=== PATIENT | female | born 1960 | race Two or more races ===

== ENCOUNTER → 2017-03-13 | Outpatient (CLI) | payer OTHER ==
[2014-05-27 10:15] VITALS: BP 149/94
[~2017-03-13] MED LIST: AMLO5TAB2 PO
--- NOTE | 2017-03-13 17:36 | KCIC ---
Bilateral digital screening mammograms: Reason for examination: Routine screening. Comparison is made to previous studies dated 01/12/2016 and 03/17/2013. The skin and nipples show no abnormalities. No abnormal lymph nodes are seen. The breast parenchyma is predominantly fatty. (Breast density: Category A.) There continues to be some patchy parenchymal asymmetry at the 2:00 B position of the left breast which has not changed. There are no new dominant masses, suspicious calcifications or architectural distortions. Impression: No evidence of malignancy. Recommend routine screening. BI-RADS Category 2: Benign. "Our facility is accredited by the [employer] Mammography [employer]." This patient's information has been entered into a reminder system for the patient to be notified with the results of her examination and a target date for the next mammogram. Electronically signed by: Sharon Yi MD (03/13/2017 5:33 PM) [facility]
== END | disposition home or self-care (01) ==
LOC: KCIC MAMMO 11:39
PROVIDERS: ATTEND Family Medicine
DX: Z12.31 Encounter for screening mammogram for malignant neoplasm of breast (principal)
CPT/HCPCS: G0202; 77067

== ENCOUNTER 2017-06-29 06:09 | Day surgery (SDC) | payer OTHER ==
[~2017-06-29] VITALS: Ht 162.6 cm; Wt 73.9 kg
[2017-06-29] MEDS ORDERED: IV RINGERS,LACTATED 1000ML 1,000 ML IV SCH (07:00)
[2017-06-29] MEDS ORDERED: LIDOCAINE 1% PF 2 ML VIAL. ID PRN (07:00)
[2017-06-29] MEDS ORDERED: MORPHINE SULFATE 2 MG/ML DISP.SYRIN. IV PRN (07:00)
[2017-06-29] MEDS ORDERED: HYDROmorphone 2 MG/ML VIAL IV PRN (07:00)
[2017-06-29] MEDS ORDERED: PROCHLORPERAZINE 10 MG/2 ML VIAL. IV PRN (07:00)
[2017-06-29] MEDS ORDERED: fentaNYL PF VIAL 100 MCG/2 ML VIAL IV PRN (07:00)
[2017-06-29] MEDS ORDERED: ONDANSETRON PF 4 MG/2 ML VIAL. IV PRN (07:00)
[2017-06-29] MEDS ORDERED: PROPOFOL 20 ML IV ONE ×2 (07:11)
[2017-06-29] MEDS ORDERED: 0.9 % SODIUM CHLORIDE 50 ML VIAL. IJ ONE (07:11)
[2017-06-29] MEDS ORDERED: LIDOCAINE 2% PF Vial for OR 5 ML VIAL. ONE ×3 (07:11)
[2017-06-29] MEDS ORDERED: MIDAZOLAM HCL/PF 2 MG/2 ML VIAL. ONE (07:16)
[2017-06-29] MEDS ORDERED: BUPIVACAINE 0.25% 50 ML VIAL. ONE (07:17)
[2017-06-29] MEDS ORDERED: KETAMINE HCL 500 MG/10 ML VIAL. ONE (07:19)
[2017-06-29] MEDS ORDERED: GLYCOPYRROLATE 1 MG/5 ML VIAL. ONE (07:24)
--- NOTE | 2017-06-29 08:49 | DISCH ---
DISCHARGE INSTRUCTIONS Condition on Discharge Condition on Discharge: Stable Activity After Discharge Activity Instructions for Disc: Other, see below Other activity instructions: avoid hard grasp or pressure on incision Weight Bearing Status after Di: Other, see below (May use hand for fine motor use eating keyboard etc.) Diet after Discharge Diet after Discharge: Regular Wound Incision Care Wound/Incision Care: Ice to area for comfort, Keep wound elevated, Do not change dressing Other wound/incision instructi: keep dressing clean and dry Contacting the [facility] after DC Call your doctor for: Concerns you may have Follow-Up Follow up with: Dr. Crouch 10 days YUDELKA CROUCH MD Jun 29, 2017 08:49
[2017-06-29] MEDS ORDERED: HYDR-971 PO (08:51)
--- NOTE | 2017-06-29 08:56 | PDOC4 ---
Operative Note Operative Note Date of surgery: 06/29/2017 Preoperative diagnosis: Left carpal tunnel syndrome Postoperative diagnosis: Same with moderate to severe median nerve compression Operative procedure: Left carpal tunnel release Surgeon: Willa Anesthesia: [place] block Estimated blood loss: 1 mL Complications: None Operative indications: Patient has had numbness and burning in both of her hands left worse than right probably for over a year it's been consistently worsening over the past several months it bothers her at night with activity and also in certain positions and sleeping. EMG confirmed carpal tunnel syndrome right much more severe than left and she is a left-hand dominant individual. We had discussed nonoperative treatments which have not been effective in eliminating any progression of her symptoms we also talked about carpal tunnel release and the possibility of infection nerve or blood vessel damage medical or other anesthetic complications among others including the fact that her symptoms may not go away completely despite taking the pressure off the nerve. All her questions were answered consent was obtained and she agrees to proceed with surgical evaluation and treatment Operative text: Patient was identified procedure verified patient placed in the supine position on the operating table. After a tourniquet was placed on the upper arm and her block was administered by anesthesia the left upper extremity was prepped and draped in standard sterile fashion. After timeout was performed patient procedure identified and verified a longitudinal incision was made just distal to the distal palmar crease dissection carried out down to the transverse carpal ligament which was divided longitudinally carpal tunnel contents were protected with a [place] elevator and were directly visualized. Transverse carpal ligament was divided proximally and distally and verified to rereleased completely both visually and palpably. Quarter percent plain Marcaine was used to supplement in the incision site area and closure accomplished with 4-0 nylon suture sterile dressings were applied fingers were noted be warm pink following deflation of tourniquet after total tourniquet time approximately 25 minutes she was returned recovery room in stable condition having tolerated procedure well YUDELKA JARVIS MD Jun 29, 2017 08:56
[2017-06-29] MEDS ORDERED: fentaNYL PF VIAL 100 MCG/2 ML VIAL ONE (09:14)
[2017-06-29] MEDS ORDERED: HYDROcodone/APAP 5/325MG 1 TAB TABLET PO ONE (09:15)
[2017-06-29] MEDS ORDERED: hydrALAZINE 20 MG/ML VIAL. ONE (10:00)
[2017-06-29] MEDS: fentaNYL PF VIAL 100 MCG/2 ML VIAL IV PRN ×2 (10:13→10:31)
[2017-06-29] MEDS ORDERED: hydrALAZINE 20 MG/ML VIAL. IVP ONE (10:15)
[2017-06-29 10:27] VITALS: BP 138/89
== END 2017-06-29 10:56 | disposition home or self-care (01) ==
LOC: SURG 06:09
PROVIDERS: ATTEND Orthopaedic Surgery
DX: G56.02 Carpal tunnel syndrome, left upper limb (principal); I10 Essential (primary) hypertension; J45.909 Unspecified asthma, uncomplicated; F32.9 Major depressive disorder, single episode, unspecified; F17.200 Nicotine dependence, unspecified, uncomplicated; Z98.890 Other specified postprocedural states; Z90.49 Acquired absence of other specified parts of digestive tract; Z87.39 Personal history of other diseases of the musculoskeletal system and connective tissue; Z72.89 Other problems related to lifestyle; Z88.8 Allergy status to other drugs, medicaments and biological substances
CPT/HCPCS: 64721; J0360; J0690; J2250; J2704; J3010; J3490; C1769; J2001

== ENCOUNTER 2017-12-29 10:19 | Emergency (ER) | payer OTHER ==
[2017-12-29] MEDS: HYDROcodone/APAP 5/325MG 1 TAB TABLET PO (11:32)
== END 2017-12-29 11:35 | disposition home or self-care (01) ==
LOC: ER 10:19
DX: M54.16 Radiculopathy, lumbar region (principal); I10 Essential (primary) hypertension; F20.9 Schizophrenia, unspecified; Z90.49 Acquired absence of other specified parts of digestive tract
CPT/HCPCS: 99283

== ENCOUNTER → 2018-01-11 | Day surgery (SDC) | payer OTHER ==
[~2018-01-11] MED LIST changes: -AMLO5TAB2 PO; +BUPIVACAINE-EPI 0.25%-1:200000 50 ML VIAL.; +FAMOTIDINE 20 MG/2 ML VIAL; +LIDOCAINE 1% PF 2 ML VIAL. ID; +LIDOCAINE 2% PF Vial for OR 5 ML VIAL.; +MIDAZOLAM HCL/PF 2 MG/2 ML VIAL.; +MORPHINE SULFATE 2 MG/ML DISP.SYRIN. IV; +ONDANSETRON PF 4 MG/2 ML VIAL.; +ONDANSETRON PF 4 MG/2 ML VIAL. IV; +PROCHLORPERAZINE 10 MG/2 ML VIAL. IV; +PROPOFOL 20 ML IV; +SEVOFLURANE 16 TO 30 MINUTES. IH; +ePHEDrine PF IN SALINE 50 MG/5 ML DISP.SYRIN IV; +fentaNYL PF VIAL 100 MCG/2 ML VIAL; +fentaNYL PF VIAL 100 MCG/2 ML VIAL IV
[2018-01-11] MEDS: IV RINGERS,LACTATED 1000ML 1,000 ML IV (07:45)
[2018-01-11] MEDS: HYDROcodone/APAP 5/325MG 1 TAB TABLET PO (09:46)
[2018-01-11] MEDS: BUPIVACAINE 0.25% 50 ML VIAL. (13:59)
== END | disposition home or self-care (01) ==
LOC: SURG 07:09
DX: G56.01 Carpal tunnel syndrome, right upper limb (principal); Z86.73 Personal history of transient ischemic attack (TIA), and cerebral infarction without residual deficits; I10 Essential (primary) hypertension; J45.909 Unspecified asthma, uncomplicated; Z90.49 Acquired absence of other specified parts of digestive tract; K21.9 Gastro-esophageal reflux disease without esophagitis; Z98.51 Tubal ligation status; Z98.890 Other specified postprocedural states; M19.90 Unspecified osteoarthritis, unspecified site; Z85.05 Personal history of malignant neoplasm of liver; F20.9 Schizophrenia, unspecified; F31.9 Bipolar disorder, unspecified; F41.9 Anxiety disorder, unspecified; Z72.89 Other problems related to lifestyle; Z83.3 Family history of diabetes mellitus; Z88.8 Allergy status to other drugs, medicaments and biological substances; F17.200 Nicotine dependence, unspecified, uncomplicated; Z79.899 Other long term (current) drug therapy
CPT/HCPCS: 64721; A7015; J0690; J2001; J2250; J2405; J2704; J3010; J3490; S0028

== ENCOUNTER 2018-03-15 13:45 | Emergency (ER) | payer OTHER ==
[~2018-03-15] VITALS: Ht 154.9 cm; Wt 75.7 kg
[~2018-03-15 13:45] MED LIST changes: +AMLO5TAB7 PO; -BUPIVACAINE-EPI 0.25%-1:200000 50 ML VIAL.; -FAMOTIDINE 20 MG/2 ML VIAL; +HYDR-971 PO; -LIDOCAINE 1% PF 2 ML VIAL. ID; -LIDOCAINE 2% PF Vial for OR 5 ML VIAL.; +LISI10TA2 PO; -MIDAZOLAM HCL/PF 2 MG/2 ML VIAL.; -MORPHINE SULFATE 2 MG/ML DISP.SYRIN. IV; -ONDANSETRON PF 4 MG/2 ML VIAL.; -ONDANSETRON PF 4 MG/2 ML VIAL. IV; +OXYB5TAB7 PO; +PRED50TA PO; -PROCHLORPERAZINE 10 MG/2 ML VIAL. IV; -PROPOFOL 20 ML IV; +PROVENTIL HFA6.7 GM IH; -SEVOFLURANE 16 TO 30 MINUTES. IH; -ePHEDrine PF IN SALINE 50 MG/5 ML DISP.SYRIN IV; -fentaNYL PF VIAL 100 MCG/2 ML VIAL; -fentaNYL PF VIAL 100 MCG/2 ML VIAL IV
[2018-03-15 13:59] VITALS: BP 113/60
[2018-03-15] MEDS ORDERED: KETOROLAC 60 MG/2 ML INJ. IM ONE (14:15)
[2018-03-15] MEDS ORDERED: ORPHENADRINE CITRATE 60 MG/2 ML VIAL. IM ONE (14:15)
[2018-03-15] MEDS ORDERED: NAPR-514 PO (14:20)
[2018-03-15] MEDS ORDERED: ORPH100T PO (14:20)
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
== END 2018-03-15 14:45 | disposition home or self-care (01) ==
LOC: ER 13:45
DX: M54.41 Lumbago with sciatica, right side (principal); J45.909 Unspecified asthma, uncomplicated; I10 Essential (primary) hypertension; F20.9 Schizophrenia, unspecified; Z90.89 Acquired absence of other organs; Z90.49 Acquired absence of other specified parts of digestive tract; Z98.890 Other specified postprocedural states; Z88.6 Allergy status to analgesic agent
CPT/HCPCS: 96372; 99284; J1885; J2360

== ENCOUNTER → 2018-12-17 | Outpatient (CLI) | payer OTHER ==
[~2018-12-17] MED LIST changes: +ALBU2.5V8 IH; +AMLO5TAB10 PO; -AMLO5TAB7 PO; +HYDR-2765 PO; +HYDR-3164 PO; -HYDR-971 PO; +NAPR-514 PO; +ONDA4TAB12 PO; +ORPH100T PO; -PROVENTIL HFA6.7 GM IH
--- NOTE | 2018-12-17 14:06 | KCIC ---
BILATERAL SCREENING MAMMOGRAM History: Routine screening. Comparison: Bilateral mammogram March 17, 2017 and dating back to 2010. Technique: Routine bilateral digital mammogram views were obtained. Findings: Breast Tissue Density A : The breasts are almost entirely fatty. Parenchymal asymmetry in the left breast 2:00 position at posterior depth is stable dating back to 2010. There are no dominant masses, suspicious microcalcifications, or architectural distortion. IMPRESSION: No mammographic evidence of malignancy. Recommend routine screening. BI-RADS category 2: Benign findings. The images were reviewed with computer aided detection. Patient information is entered into the reminder system with a target due date for the next screening mammogram. Mammography is the most sensitive method for finding small breast cancers, but it does not detect them all and is not a substitute for careful clinical examination. A negative mammogram does not negate a clinically suspicious finding and should not result in delay in biopsying a clinically suspicious abnormality. "Our facility is accredited by the [employer] Mammography Program." Electronically signed by: Deyvi Mcnair MD (12/17/2018 2:03 PM) [facility]
--- NOTE | 2018-12-17 17:39 | KCIC ---
Limited soft tissue ultrasound HISTORY: Neck mass. FINDINGS: Scanning performed in the area of palpable lump at the left jaw line demonstrates a couple of small nodules both of which demonstrate lymph node echotexture and morphology. These measure 9 x 3 x 3 mm, and 10 x 4 x 4 mm. Scanning in the area of the palpable lump on the right jaw line demonstrates no sonographic abnormality. IMPRESSION: 1. 2 small lymph nodes identified at the area of palpable left-sided lump. 2. No sonographic findings at the area of palpable right-sided lump. Electronically signed by: Adriel Lopez MD (12/17/2018 5:36 PM) [id number]
== END | disposition home or self-care (01) ==
LOC: KCIC US 10:32
PROVIDERS: ATTEND Family Medicine
DX: Z12.31 Encounter for screening mammogram for malignant neoplasm of breast (principal); R22.1 Localized swelling, mass and lump, neck
CPT/HCPCS: 76536; 77067

== ENCOUNTER 2018-12-19 21:40 | Emergency (ER) | payer OTHER ==
[~2018-12-19] VITALS: Ht 162.6 cm; Wt 79.8 kg
[~2018-12-19 21:40] MED LIST changes: -HYDR-2765 PO; -ONDA4TAB12 PO
[2018-12-19] MEDS ORDERED: NEOMY/BACITR/POLYMYXIN OINT PACKET. TP ONE (22:15)
[2018-12-19] MEDS ORDERED: fentaNYL PF VIAL 100 MCG/2 ML VIAL IV ONE (22:15)
[2018-12-19] MEDS ORDERED: DIPHTH,PERTUSS(ACELL),TET TOX 0.5 ML DISP.SYRIN. VAX IM ONE (22:15)
--- NOTE | 2018-12-19 22:36 | RAD ---
Left humerus radiographs History: Pain and swelling Comparison: None. Findings: 2 views left humerus are submitted. There is displaced, oblique, angulated fracture involving the proximal one third shaft of the humerus with some overriding of fracture fragments. There is angulation with apex directed posteriorly and laterally, degree of rotation at site of fracture. Left humeral head articulates normally with the glenoid. Impression: 1. There is angulated, displaced fracture of the proximal one third shaft of the left humerus. Electronically signed by: Edwar Mckeon MD (12/19/2018 10:33 PM) [facility]
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
[2018-12-19] MEDS ORDERED: MORPHINE SULFATE 4 MG/ML VIAL. IV ONE (23:15)
[2018-12-19] MEDS ORDERED: ONDANSETRON PF 4 MG/2 ML VIAL. IV ONE (23:30)
[2018-12-20] MEDS ORDERED: ONDA4TAB12 PO (00:44)
[2018-12-20] MEDS ORDERED: HYDR-2765 PO (00:44)
[2018-12-20 00:45] VITALS: BP 168/108
[2018-12-20] MEDS ORDERED: HYDROcodone/APAP 7.5/325MG 1 TAB TABLET PO ONE (01:00)
== END 2018-12-20 01:00 | disposition home or self-care (01) ==
LOC: ER 21:40
DX: S42.352A Displaced comminuted fracture of shaft of humerus, left arm, initial encounter for closed fracture (principal); S80.812A Abrasion, left lower leg, initial encounter; J45.909 Unspecified asthma, uncomplicated; I10 Essential (primary) hypertension; F20.9 Schizophrenia, unspecified; Z88.8 Allergy status to other drugs, medicaments and biological substances; W01.0XXA Fall on same level from slipping, tripping and stumbling without subsequent striking against object, initial encounter; Y93.89 Activity, other specified; Y92.89 Other specified places as the place of occurrence of the external cause; Y99.8 Other external cause status
CPT/HCPCS: 29105; 73060; 90471; 90715; 96374; 96375; 99284; J2270; J2405; J3010

== ENCOUNTER → 2019-09-03 | Outpatient (CLI) | payer OTHER ==
[~2019-09-03] MED LIST changes: -ALBU2.5V8 IH; +HYDR-2765 PO; +ONDA4TAB12 PO; +OXYB5TAB10 PO; -OXYB5TAB7 PO; +PROVENTIL HFA6.7 GM IH
--- NOTE | 2019-09-04 10:46 | RAD ---
PROCEDURE: HAND RIGHT 3V STUDY DATE: 09/03/2019 CLINICAL INDICATION / HISTORY: Right thumb pain. TECHNIQUE: PA, lateral and oblique views of the right hand. COMPARISON: Left hand x-rays of 01/06/2019 FINDINGS: No fracture or dislocation is identified. The bone density is normal. The joint spaces are maintained, and there are no erosions to suggest an inflammatory arthropathy. There are however osteophytic spurs at the base of the distal phalanx of the first and fifth digits in a pattern consistent with moderately advanced osteoarthritis. The soft tissues show calcifications along the radiocarpal joint, suggesting chondrocalcinosis of the proximal carpal row cartilage. IMPRESSION: Degenerative changes at the IP joints of the first and fifth digits. No fracture, aggressive osseous lesion or malalignment noted. Electronically signed by: Neno Major MD (09/04/2019 10:43 AM) [facility]
== END ==
LOC: RAD 11:45
PROVIDERS: ATTEND Psychiatry & Neurology Neurology
DX: M19.041 Primary osteoarthritis, right hand (principal); Z86.69 Personal history of other diseases of the nervous system and sense organs
CPT/HCPCS: 73130

== ENCOUNTER → 2020-12-20 | Outpatient (CLI) | payer OTHER ==
[~2020-12-20] MED LIST changes: +AMLO-186 PO; -AMLO5TAB10 PO; +LISI10TA16 PO; -LISI10TA2 PO
--- NOTE | 2020-12-20 15:50 | RAD ---
PROCEDURE: MG 2D BILAT SCREENING HISTORY: The patient is 60 years old and is seen for Reason: SCREENING MAMMOGRAM / Spl. Instructions: / History: . COMPARISON: December 17, 2018 and March 13, 2017. TECHNIQUE: CC and MLO views of both breasts were obtained. Images were processed by the [employer] computer-aided detection system. DENSITY: The breast tissue is predominantly fatty. FINDINGS: No developing mass, suspicious calcifications or architectural distortion. Unchanged par enchymal asymmetry left upper outer breast. IMPRESSION: Negative. No evidence of malignancy. Recommend annual screening mammograms per [employer] guidelines. She will be due in one year. BI-RADS category 1 Negative Patient entered into a reminder system for annual screening mammogram. Electronically signed by: Aiden Vela DO (12/20/2020 3:48 PM) [id number]
== END ==
LOC: MAMMO 14:10
PROVIDERS: ATTEND Obstetrics & Gynecology
DX: Z12.31 Encounter for screening mammogram for malignant neoplasm of breast (principal)
CPT/HCPCS: 77067

== ENCOUNTER → 2021-02-07 | Outpatient (CLI) | payer OTHER ==
--- NOTE | 2021-02-07 13:24 | KCIC ---
EXAM: Pelvis and left hip, 2 views. HISTORY: Pain. COMPARISON: None. FINDINGS: A frontal view of the pelvis and frog-leg view of the left hip are obtained. There is no fr acture, dislocation or subluxation. There is mild lateral marginal acetabular and femoral head spurri ng with subchondral sclerosis and subchondral cyst formation. There is degenerative change of the vis ualized lower lumbar levels. IMPRESSION: 1. Mild to moderate bilateral hip osteoarthritis. 2. No acute osseous finding. Electronically signed by: Susie Camilo MD (02/07/2021 1:21 PM) [id number]
== END ==
LOC: KCIC 12:36
PROVIDERS: ATTEND Family Medicine
DX: M16.0 Bilateral primary osteoarthritis of hip (principal); M25.852 Other specified joint disorders, left hip; M47.816 Spondylosis without myelopathy or radiculopathy, lumbar region
CPT/HCPCS: 73501